=== PATIENT | female | born 1975 | race Caucasian/White ===

== ENCOUNTER 2016-10-24 15:46 | Emergency (ER) | payer OTHER ==
[~2016-10-24] VITALS: Ht 170.2 cm; Wt 70.0 kg
[2016-10-24 16:33] LABS: HEMATOCRIT 37.5 % (36.0-46.0); MCH 30.5 PG (29.0-34.0); MCHC 32.8 G/DL (30.0-36.0); MCV 93.1 FL (83-99); MEAN PLAT.VOLUME 9.7 uM^3 (9.5-12.4); PLATELET COUNT 205 K/uL (156-360); RBC DIS.WIDTH-CV 11.8 % (11.8-14.6); RBC DIS.WIDTH-SD 40.8 % (39-53); RED BLOOD COUNT 4.03 M/uL (3.80-5.20); WHITE BLOOD COUNT 5.2 K/uL (4.1-10.2)
[2016-10-24 16:40] LABS: CARBON DIOXIDE (BICARBONATE) 27.1 MEQ/L (20-31)
[2016-10-24 16:45] LABS: D-DIMER ELISA 0.18 mg/L FEU (< 0.57)
[2016-10-24 16:46] LABS: CHLORIDE 107 mEq/L (99-109); POTASSIUM 3.3 mEq/L (3.7-5.4); SODIUM 138 mEq/L (136-147)
[2016-10-24 16:47] LABS: GLUCOSE 122 mg/dL (70-99)
[2016-10-24 16:49] LABS: ANION GAP 8 MEQ/L (2-14)
[2016-10-24 16:51] LABS: GFR ESTIMATE (CALCULATED) > 59 mL/min/
[2016-10-24 16:52] LABS: UREA NITROGEN (BUN) 14 mg/dL (9-23)
[2016-10-24 16:54] LABS: CREATINE KINASE 99 IU/L (1-294); TOTAL CK 99 IU/L (1-294)
[2016-10-24 16:55] LABS: TROP-I INTERPRETATION NEGATIVE; TROPONIN-I < 0.01 ng/mL (0.0-0.30)
[2016-10-24 17:00] LABS: CK-MB 0.9 ng/mL (0.0-4.9)
[2016-10-24 18:16] VITALS: BP 121/78
== END 2016-10-24 18:19 | disposition home or self-care (01) ==
LOC: EME 15:46
PROVIDERS: Emergency Medicine
DX: R00.2 Palpitations (principal); E86.0 Dehydration
CPT/HCPCS: 71020; 80048; 82550; 82553; 82803; 83605; 83880; 84484; 85027; 85379; 87040; 93005; 99281; 99285; J7030